=== PATIENT | female | born 1965 | race Caucasian/White ===

== ENCOUNTER 2016-12-03 12:43 | Emergency (ER) | payer BC ==
[2016-12-03 13:18] VITALS: BP 114/53
--- NOTE | 2016-12-03 13:28 | UC ---
Respiratory Complaint HPI - HPI Summary HPI Summary: COUGH / CHEST CONGESTION X 1 WEEKS, + CHILLS, NO FEVER, + NASAL CONGESTION , + SOB ON EXERTION - History of Current Complaint Chief Complaint: UCGeneralIllness Stated Complaint: CONGESTED Time Seen by Provider: 12/03/16 13:08 Hx Obtained From: Patient Hx Last Menstrual Period: 08/1999 Onset/Duration: Gradual Onset, Lasting Days - 7, Still Present Severity Initially: Moderate Severity Currently: Moderate Character: Cough: Nonproductive Aggravating Factors: Exertion, Deep Breaths Alleviating Factors: Nothing Associated Signs And Symptoms: Positive: Dyspnea, Chills, Wheezing, URI, Nasal Congestion. Negative: Fever, Pleuritic Chest Pain, Hemoptysis, Dizziness, Calf Pain, Calf Swelling - Allergies/Home Medications Allergies/Adverse Reactions: Allergies Allergy/AdvReac Type Severity Reaction Status Date / Time Diphenhydramine Allergy Severe rash/respir Verified 11/25/15 10:02 [From Benadryl] atory Penicillins Allergy Severe rash/respir Verified 11/25/15 10:02 atory Sulfa Drugs Allergy Severe rash/respir Verified 11/25/15 10:02 atory PMH/Surg Hx/FS Hx/Imm Hx Endocrine History Of: Denies: Diabetes, Thyroid Disease Cardiovascular History Of: Denies: Cardiac Disorders Respiratory History Of: Denies: Asthma - Surgical History Surgical History: Yes Surgery Procedure, Year, and Place: hysterectomy. . 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 booky lap. gallbladder - Family History Known Family History: Positive: Cardiac Disease, Hypertension, Diabetes, Respiratory Disease, Other - copd - Social History Alcohol Use: Rare Substance Use Type: None Smoking Status (MU): Current Some Day Smoker Type: Cigarettes Amount Used/How Often: 1/2 pack per day Length of Time of Smoking/Using Tobacco: 35 yrs Have You Smoked in the Last Year: Yes Household Exposure Type: Cigarettes - Immunization History Most Recent Influenza Vaccination: October 2015 Review of Systems Constitutional: Chills, Fatigue Skin: Negative Eyes: Negative ENT: Nasal Discharge Respiratory: Cough Cardiovascular: Negative All Other Systems Reviewed And Are Negative: Yes Physical Exam Triage Information Reviewed: Yes Appearance: Well-Appearing, No Pain Distress, Well-Nourished Vital Signs: Initial Vital Signs Temp 98.3 F 12/03/16 13:13 Pulse 74 12/03/16 13:13 Resp 16 12/03/16 13:13 BP 114/53 12/03/16 13:13 Pulse Ox 97 12/03/16 13:13 Eye Exam: Normal Eyes: Positive: Conjunctiva Clear ENT: Positive: Normal ENT inspection, Hearing grossly normal, Pharyngeal erythema, Nasal congestion, Nasal drainage Neck exam: Normal Neck: Positive: Supple, Nontender, No Lymphadenopathy Respiratory: Positive: Chest non-tender, Lungs clear, Normal breath sounds Cardiovascular: Positive: RRR, No Murmur, Pulses Normal Skin Exam: Normal UC Diagnostic Evaluation - Laboratory O2 Sat by Pulse Oximetry: 97 Respiratory Course/Dx - Differential Dx/Diagnosis Provider Diagnoses: BRONCHITIS Discharge - Discharge Plan Condition: Stable Disposition: HOME Prescriptions: Albuterol HFA INHALER* [Ventolin HFA Inhaler*] 2 puff INH Q6H PRN #1 mdi PRN Reason: Wheezing Azithromycin TAB* [Zithromax TAB (Z-PRECIOUS)*] 0 mg PO .Z-PRECIOUS INSTRUCTIONS #6 tab Patient Education Materials: Acute Bronchitis (ED) Referrals: Bong RIVERA,Florentin Pope [Primary Care Provider] - 7 Days
== END 2016-12-03 13:35 | disposition home or self-care (01) ==
LOC: UCCORT 12:43
DX: J40 Bronchitis, not specified as acute or chronic (principal); Z88.0 Allergy status to penicillin; Z88.2 Allergy status to sulfonamides; Z88.8 Allergy status to other drugs, medicaments and biological substances; F17.210 Nicotine dependence, cigarettes, uncomplicated
CPT/HCPCS: 99212; G0463

== ENCOUNTER 2016-12-11 15:18 | Emergency (ER) | payer BC ==
[2016-12-11 15:34] VITALS: BP 125/56
--- NOTE | 2016-12-11 16:04 | UC ---
Respiratory Complaint HPI - HPI Summary HPI Summary: pt c/o cough, nasal congestion fatigue X 2 weeks. WAs treated with z-pac 2 weeks ago with no improvement. - History of Current Complaint Chief Complaint: UCGeneralIllness Stated Complaint: RECHECK BRONCHITIS Time Seen by Provider: 12/11/16 15:38 Hx Obtained From: Patient Hx Last Menstrual Period: 08/1999 ?: No Onset/Duration: Gradual Onset, Lasting Weeks Timing: Constant Severity Initially: Mild Severity Currently: Mild Character: Cough: Nonproductive Aggravating Factors: Deep Breaths, Recumbent Position Alleviating Factors: Nothing Associated Signs And Symptoms: Positive: URI, Nasal Congestion - Risk Factors Cardiac Risk Factors: Smoking Tuberculosis Risk Factors: Smoking - Allergies/Home Medications Allergies/Adverse Reactions: Allergies Allergy/AdvReac Type Severity Reaction Status Date / Time Diphenhydramine Allergy Severe rash/respir Verified 12/11/16 15:34 [From Benadryl] at[facility] Penicillins Allergy Severe rash/respir Verified 12/11/16 15:34 atory Sulfa Drugs Allergy Severe rash/respir Verified 12/11/16 15:34 atory PMH/Surg Hx/FS Hx/Imm Hx Previously Healthy: Yes Endocrine History Of: Denies: Diabetes, Thyroid Disease Cardiovascular History Of: Denies: Cardiac Disorders Respiratory History Of: Denies: Asthma - Surgical History Surgical History: Yes Surgery Procedure, Year, and Place: hysterectomy. . 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 gallbladder - Family History Known Family History: Positive: Cardiac Disease, Hypertension, Diabetes, Respiratory Disease, Other - copd - Social History Occupation: Employed Full-time Alcohol Use: Rare Substance Use Type: None Smoking Status (MU): Light Every Day Tobacco Smoker Type: Cigarettes Amount Used/How Often: 1/4-1/2 ppd Length of Time of Smoking/Using Tobacco: 35 yrs Have You Smoked in the Last Year: Yes Household Exposure Type: Cigarettes - Immunization History Most Recent Influenza Vaccination: October 2015 Review of Systems Constitutional: Fatigue Skin: Negative Eyes: Negative ENT: Other - nasal congestion Respiratory: Cough Cardiovascular: Negative Gastrointestinal: Negative Genitourinary: Negative Motor: Negative Neurovascular: Negative Musculoskeletal: Negative Neurological: Negative Psychological: Negative All Other Systems Reviewed And Are Negative: Yes Physical Exam Triage Information Reviewed: Yes Appearance: Ill-Appearing Vital Signs: Initial Vital Signs Temp 98.8 F 12/11/16 15:28 Pulse 86 01/11/17 15:28 Resp 17 12/11/16 15:28 BP 125/56 12/11/16 15:28 Pulse Ox 95 12/11/16 15:28 Vital Signs Reviewed: Yes ENT Exam: Other ENT: Positive: Nasal congestion, Other: - PND Neck exam: Normal Respiratory: Positive: Decreased breath sounds - bilataeral bases Cardiovascular Exam: Normal Musculoskeletal Exam: Normal Neurological Exam: Normal Psychological Exam: Normal Skin Exam: Normal UC Diagnostic Evaluation - Laboratory O2 Sat by Pulse Oximetry: 95 Respiratory Course/Dx - Differential Dx/Diagnosis Differential Diagnosis/HQI/PQRI: Bronchitis, Pulmonary Embolism, Other - URI Provider Diagnoses: Bronchitis Discharge - Discharge Plan Condition: Stable Disposition: HOME Prescriptions: Albuterol 2.5MG/3ML (0.083%)* [Ventolin 2.5 MG/3 ML NEB.MARGARETTE*] 2.5 mg INH Q6H PRN #1 box PRN Reason: Wheezing DOXYcycline CAP(*) [DOXYcycline 100MG CAP(*)] 100 mg PO BID #14 cap methylPREDNISolone TAB* [Medrol TAB*] 4 - 8 mg PO .SEE PRECIOUS #1 precious Patient Education Materials: Acute Bronchitis (ED) Forms: *Work Release Referrals: Bong RIVERA,Florentin Pope [Primary Care Provider] -
== END 2016-12-11 16:08 | disposition home or self-care (01) ==
LOC: UCCORT 15:18
DX: J40 Bronchitis, not specified as acute or chronic (principal); F17.210 Nicotine dependence, cigarettes, uncomplicated; Z88.8 Allergy status to other drugs, medicaments and biological substances; Z88.2 Allergy status to sulfonamides; Z88.0 Allergy status to penicillin
CPT/HCPCS: 99212; G0463

== ENCOUNTER 2017-02-17 16:35 | Emergency (ER) | payer BC ==
--- NOTE | 2017-02-17 17:35 | UC ---
Cardiac HPI - HPI Summary HPI Summary: The patient comes in today for: 1. Chest pain: Onset: 2-3 days. Palliative/provocative: worse when taking a deep breath. She states that the patient does not get worse with activity, but she is not very active. Eating does not affect it, neither does body position. Quality: Heavy pressure: Region: Upper left chest and radiates to the back. Severity: She states that it is not painful, but a discomfort of 5/10 Time: Constant. Associated symptoms: Nausea: In the AM, but not now. Dyspnea: worse with two flights of stairs--but the chest pressure is not worse with 2 flights of stairs. CAD risk factors: HTN: (-). DM: (+ borderline). Fm Hx: (-). Cholesterol: ( "really good"). Previous disease: (-). Smoker: (+). Equivalent disease: (-) LMP: 1998 Hyst * - History of Current Complaint Chief Complaint: UCChestPain Stated Complaint: CHEST PAIN Time Seen by Provider: 02/17/17 17:23 Hx Obtained From: Patient - Allergy/Home Medications Allergies/Adverse Reactions: Allergies Allergy/AdvReac Type Severity Reaction Status Date / Time Diphenhydramine Allergy Severe rash/respir Verified 02/17/17 16:56 [From Benadryl] [facility] Penicillins Allergy Severe rash/respir Verified 02/17/17 16:56 atory Sulfa Drugs Allergy Severe rash/respir Verified 02/17/17 16:56 atory Home Medications: Home Medications Acetaminophen [Extra Strength Acetaminop] 1,000 mg PO ONCE PRN 02/17/17 [ History Confirmed 02/17/17] Ibuprofen TAB* [Advil TAB*] 600 mg PO Q6H PRN 02/17/17 [History Confirmed ] PMH/Surg Hx/FS Hx/Imm Hx Previously Healthy: No - Allergies Endocrine History Of: Reports: Diabetes - Pre-diabetic. Denies: Thyroid Disease, Hyperthyroidism, Hypothyroidism, Dyslipidemia Cardiovascular History Of: Reports: Cardiac Disorders - "Angina" 2003, stress test then was "fine" CP dx: "stress induced." Denies: Hypertension, Pacemaker/ICD, Myocardial Infarction, Congestive Heart Failure, Atrial Fibrillation, Deep Vein Thrombosis, Bleeding Disorders Respiratory History Of: Denies: COPD, Asthma, Bronchitis, Pneumonia, Pulmonary Embolism GI/ History Of: Reports: Gastroesophageal Reflux Denies: Ulcer, Gastrointestinal Bleed, Gall Bladder Disease, Kidney Stones, Diverticulitis, Renal Disease, Urosepsis Neurological History Of: Denies: TIA, CVA, Dementia, Seizures, Migraine Psychological History Of: Denies: Anxiety, Depression, Bipolar Disorder, Schizophrenia, Post Traumatic Stress Disorder Cancer History Of: Denies: Lung Cancer, Colorectal Cancer, Breast Cancer, Prostate Cancer, Cervical Cancer Other History Of: Negative For: HIV, Hepatitis B, Hepatitis C, Anticoagulant Therapy - Surgical History Surgical History: Yes Surgery Procedure, Year, and Place: hysterectomy. . 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 gallbladder - Family History Known Family History: Positive: Cardiac Disease, Hypertension, Diabetes, Respiratory Disease, Other - copd - Social History Occupation: Employed Full-time Alcohol Use: Occasionally Substance Use Type: None Smoking Status (MU): Light Every Day Tobacco Smoker Type: Cigarettes Amount Used/How Often: 1/4-1/2 ppd Length of Time of Smoking/Using Tobacco: 16 yrs Have You Smoked in the Last Year: Yes Household Exposure Type: Cigarettes - Immunization History Most Recent Influenza Vaccination: October 2015 Review of Systems Constitutional: Negative Skin: Negative Eyes: Negative ENT: Negative Respiratory: Negative, Cough - Since December of this year. Cardiovascular: Chest Pain Gastrointestinal: Negative Genitourinary: Negative All Other Systems Reviewed And Are Negative: Yes Physical Exam Triage Information Reviewed: Yes Appearance: Well-Appearing, No Pain Distress, Well-Nourished Vital Signs: Initial Vital Signs Temp 98.8 F 02/17/17 16:47 Pulse 80 02/17/17 16:47 Resp 12 02/17/17 16:47 BP 117/72 02/17/17 16:47 Pulse Ox 97 02/17/17 16:47 Vital Signs Reviewed: Yes Eyes: Positive: Conjunctiva Clear. Negative: Discharge ENT: Positive: Hearing grossly normal. Negative: Pharyngeal erythema, Nasal congestion, Nasal drainage, TM bulging, TM dull, TM red, Tonsillar swelling, Tonsillar exudate Dental: Negative: Gross Decay/Caries @, Dental Fracture @ Neck: Positive: Supple, Nontender, No Lymphadenopathy. Negative: Nuchal Rigidity Respiratory: Positive: Lungs clear, No respiratory distress, No accessory muscle use. Negative: Crackles, Wheezing, Expiration Cardiovascular: Positive: RRR, No Murmur Abdomen Description: Positive: Nontender, No Organomegaly, Soft. Negative: Distended, Guarding Musculoskeletal: Positive: Strength Intact, ROM Intact, Other: - Pressing on the upper anterior chest and upper left posterior chest reproduced her chest pressure. Neurological: Positive: Alert, Muscle Tone Normal Psychological: Positive: Age Appropriate Behavior, Consolable Skin: Negative: rashes, breakdown - Assessment/Plan Course Of Treatment: Patient was told: I did not know for sure what was causing her chest pain, but suspected that it was musculoskeletal. However, I was not able to rule out a cardiac cause. Patient was told that her CXR looked negative to me, but I am not the radiologist reading it. She was told that I will watch for the report and if any problems let her know. Again my recommendation to go to the ER was recommended, but she wanted to treat this as a musculoskeletal problem. She was also told that there are many causes of chest pain--some benign and some life-threatening. Also the patient was told that the life-threatening conditions may present with minimal, atypical, or even no symptoms or signs at all until late. Therefore, the patient was told that my recommendation has to be for the patient to go to the. emergency room. However, the patient was told that we will honor whatever decision they make about their care. She did not want to go to the ER at this time and only agreed to a CXR and Flexeril to be given for spasm. - Clinical Impression Provider Diagnoses: Chest pain (can't rule out NV, possible musculoskeletal). Discharge - Discharge Plan Condition: Stable Disposition: AGAINST MEDICAL ADVICE Additional Instructions: My recommendation formally is to go to the ER for evaluation. However, your decision to initially treat this as a muscle problem will be respected. Please take the medication as directed and if you don't get better and particularly if you get worse, please reconsider going to the ER.
[2017-02-17] MEDS ORDERED: Cyclobenzaprine TAB* 10 MG PO ONE (17:49)
--- NOTE | 2017-02-17 18:34 | RAD ---
Indication: Left upper chest pain. 2 views of the chest including dual energy PA views demonstrates no mediastinal shift. Heart is of normal size and configuration. Lung pitt demonstrate no pleural fluid, pneumonia or pneumothorax. When compared to previous exam of November 25, 2015 no significant change is noted. IMPRESSION: No active cardiopulmonary disease is noted.
[2017-02-17 18:48] VITALS: BP 119/73
== END 2017-02-17 18:48 | disposition left against medical advice (07) ==
LOC: UCCORT 16:35
DX: R07.89 Other chest pain (principal); Z88.0 Allergy status to penicillin; Z88.2 Allergy status to sulfonamides; Z88.8 Allergy status to other drugs, medicaments and biological substances; F17.210 Nicotine dependence, cigarettes, uncomplicated
CPT/HCPCS: 71020; 93005; 99212; A9270-GY; G0463

== ENCOUNTER 2017-07-22 08:50 | Emergency (ER) | payer BC ==
[2017-07-22 09:03] VITALS: BP 142/59
--- NOTE | 2017-07-22 09:14 | UC ---
Throat Pain/Nasal Mike HPI - HPI Summary HPI Summary: SINUS PAIN AND PRESSURE X 10 DAYS + NASAL CONGESTION, COUGH , PND, + PRESSURE IN RIGHT EAR, NO FEVER, NO CHILLS - History of Current Complaint Chief Complaint: UCGeneralIllness Stated Complaint: SINUS,SORE THROAT,COUGH Time Seen by Provider: 07/22/17 09:03 Hx Obtained From: Patient Hx Last Menstrual Period: 1998 Onset/Duration: Gradual Onset, Lasting Days - 10, Still Present Severity: Moderate Cough: Nonproductive Associated Signs & Symptoms: Positive: Sinus Discomfort, Nasal Discharge. Negative: Dysphagia, FB Sensation, Drooling, Wheezing, Hoarseness, Fever, Vomiting, Rash - Allergies/Home Medications Allergies/Adverse Reactions: Allergies Allergy/AdvReac Type Severity Reaction Status Date / Time Diphenhydramine Allergy Severe rash/respir Verified 07/22/17 09:03 [From Benadryl] [facility] Penicillins Allergy Severe rash/respir Verified 07/22/17 09:03 atory Sulfa Drugs Allergy Severe rash/respir Verified 07/22/17 09:03 atory PMH/Surg Hx/FS Hx/Imm Hx Endocrine History: Diabetes Cardiovascular History: Cardiac Disease Other History Of: Negative For: HIV, Hepatitis B, Hepatitis C, Anticoagulant Therapy - Surgical History Surgical History: Yes Surgery Procedure, Year, and Place: hysterectomy. . 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 gallbladder - Family History Known Family History: Positive: Cardiac Disease, Hypertension, Diabetes, Respiratory Disease, Other - copd - Social History Alcohol Use: Rare Substance Use Type: None Smoking Status (MU): Light Every Day Tobacco Smoker Type: Cigarettes Amount Used/How Often: 1/4-1/2 ppd Length of Time of Smoking/Using Tobacco: 35 yrs Have You Smoked in the Last Year: Yes Household Exposure Type: Cigarettes - Immunization History Most Recent Influenza Vaccination: October 2015 Review of Systems Constitutional: Negative Skin: Negative Eyes: Negative ENT: Nasal Discharge, Sinus Congestion Respiratory: Cough Cardiovascular: Negative Gastrointestinal: Negative All Other Systems Reviewed And Are Negative: Yes Physical Exam Triage Information Reviewed: Yes Appearance: Well-Appearing, No Pain Distress, Well-Nourished Vital Signs: Initial Vital Signs Temp 98.4 F 07/22/17 08:56 Pulse 80 07/22/17 08:56 Resp 18 07/22/17 08:56 BP 142/59 07/22/17 08:56 Pulse Ox 100 07/22/17 08:56 Vital Signs Reviewed: Yes Eyes: Positive: Conjunctiva Clear ENT Exam: Normal ENT: Positive: Normal ENT inspection, Hearing grossly normal, Pharynx normal, Nasal congestion, Nasal drainage, TMs normal, TM bulging - RIGHT TM. Negative: Pharyngeal erythema, TM dull, TM red Neck exam: Normal Neck: Positive: Supple, Nontender, No Lymphadenopathy Respiratory: Positive: Chest non-tender, Lungs clear, Normal breath sounds Cardiovascular: Positive: RRR, No Murmur, Pulses Normal Skin Exam: Normal Throat Pain/Nasal Course/Dx - Differential Dx/Diagnosis Provider Diagnoses: SINUSITIS Discharge - Discharge Plan Condition: Stable Disposition: HOME Prescriptions: Azithromycin TAB* [Zithromax TAB (Z-PRECIOUS) 250 mg #6 tabs] 2 tab PO .TODAY, THEN 1 DAILY #1 precious Fluticasone NASAL SPRAY 50MCG* [Flonase NASAL SPRAY 50MCG*] 2 spray BOTH NARES DAILY #1 btl Patient Education Materials: Sinusitis (ED) Referrals: Bong RIVERA,Florentin Pope [Primary Care Provider] - If Needed
== END 2017-07-22 09:14 | disposition home or self-care (01) ==
LOC: UCCORT 08:50
DX: J32.9 Chronic sinusitis, unspecified (principal); E11.9 Type 2 diabetes mellitus without complications; I51.9 Heart disease, unspecified; Z90.710 Acquired absence of both cervix and uterus; Z90.49 Acquired absence of other specified parts of digestive tract; Z88.0 Allergy status to penicillin; Z88.2 Allergy status to sulfonamides; Z88.8 Allergy status to other drugs, medicaments and biological substances; F17.210 Nicotine dependence, cigarettes, uncomplicated
CPT/HCPCS: 99212; G0463

== ENCOUNTER 2017-09-08 15:40 | Emergency (ER) | payer BC ==
[2017-09-08 16:06] VITALS: BP 121/61
[2017-09-08] MEDS: Albuterol 2.5 MG/3 ML NEB.SOL* (0.083%) INH ONE (16:16)
[2017-09-08] MEDS: Ipratropium 0.5MG/2.5ML NEB* 0.5 MG/2.5 ML NEB.SOLN INH ONE (16:16)
--- NOTE | 2017-09-08 16:18 | UC ---
Respiratory Complaint HPI - HPI Summary HPI Summary: 52 yo female with a 5 day hx of productive cough and wheezing ? fever no CP or SOB no n/v/d - History of Current Complaint Chief Complaint: UCRespiratory Stated Complaint: RESP ISSUE CONGESTION COUGH Time Seen by Provider: 09/08/17 16:07 Hx Obtained From: Patient Hx Last Menstrual Period: 1998 Onset/Duration: Gradual Onset, Lasting Days Timing: Constant Severity Initially: Mild Severity Currently: Moderate Pain Intensity: 2 Pain Scale Used: 0-10 Numeric Character: Cough: Productive Aggravating Factors: Nothing Alleviating Factors: Nothing Associated Signs And Symptoms: Positive: Fever - ?, Wheezing Related History: Similar Episode/Dx as: - bronchitis/pneumonia - Allergies/Home Medications Allergies/Adverse Reactions: Allergies Allergy/AdvReac Type Severity Reaction Status Date / Time Diphenhydramine Allergy Severe rash/respir Verified 09/08/17 15:59 [From Benadryl] at[facility] Penicillins Allergy Severe rash/respir Verified 09/08/17 15:59 atory Sulfa Drugs Allergy Severe rash/respir Verified 09/08/17 15:59 atory Home Medications: Home Medications Fluticasone NASAL SPRAY 50MCG* [Flonase NASAL SPRAY 50MCG*] 2 spray BOTH NARES DAILY PRN 09/08/17 [History Confirmed 09/08/17] [id number]-Hdeyk [Daytime/Nite Time Cold/Fl] 2 cap PO BID PRN 08/17 [History Confirmed 09/08/17] Pseudoephedrine TAB* [Sudafed TAB*] 30 mg PO Q4H PRN 09/08/17 [History Confirmed 09/08/17] PMH/Surg Hx/FS Hx/Imm Hx Previously Healthy: Yes Other History Of: Negative For: HIV, Hepatitis B, Hepatitis C, Anticoagulant Therapy - Surgical History Surgical History: Yes Surgery Procedure, Year, and Place: hysterectomy. . 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 - Family History Known Family History: Positive: Cardiac Disease, Hypertension, Diabetes, Respiratory Disease, Other - copd - Social History Alcohol Use: Occasionally Substance Use Type: None Smoking Status (MU): Heavy Every Day Tobacco Smoker Type: Cigarettes Amount Used/How Often: 1/2 ppd Length of Time of Smoking/Using Tobacco: 35 yrs Have You Smoked in the Last Year: Yes Household Exposure Type: Cigarettes - Immunization History Most Recent Influenza Vaccination: October 2015 Review of Systems Constitutional: Fever - ?, Chills Skin: Negative Eyes: Negative ENT: Negative Respiratory: Cough Cardiovascular: Negative Gastrointestinal: Negative Genitourinary: Negative Motor: Negative Neurovascular: Negative Musculoskeletal: Negative Neurological: Negative Psychological: Negative Is Patient Immunocompromised?: No All Other Systems Reviewed And Are Negative: Yes Physical Exam Triage Information Reviewed: Yes Appearance: Well-Appearing, No Pain Distress, Well-Nourished Vital Signs: Initial Vital Signs Temp 98.3 F 09/08/17 16:02 Pulse 69 09/08/17 16:02 Resp 18 09/08/17 16:02 BP 121/61 09/08/17 16:02 Pulse Ox 94 09/08/17 16:02 Vital Signs Reviewed: Yes Eyes: Positive: Conjunctiva Clear ENT: Positive: Hearing grossly normal. Negative: Nasal congestion, Nasal drainage, Tonsillar swelling, Tonsillar exudate, Trismus, Muffled/hoarse voice Neck: Positive: Supple, Nontender, No Lymphadenopathy Respiratory: Positive: No respiratory distress, No accessory muscle use, Decreased breath sounds - left base, Wheezing Cardiovascular: Positive: RRR, No Murmur Musculoskeletal: Positive: ROM Intact, No Edema Neurological: Positive: Alert Psychological Exam: Normal Skin Exam: Normal UC Diagnostic Evaluation - Laboratory O2 Sat by Pulse Oximetry: 94 - low normal Re-Evaluation - Re-Evaluation First Eval Re-Evaluation Time: 16:37 Change: Improved Comment: better air movement/still wheezing/right and lower lungs sound better. no rales Respiratory Course/Dx - Course Course Of Treatment: much improved at d/c. repeat pulse ox 98 % - Differential Dx/Diagnosis Provider Diagnoses: acute bronchitis with bronchospasm Discharge - Discharge Plan Condition: Improved Disposition: HOME Prescriptions: Azithromycin TAB* [Zithromax TAB*] 250 mg PO DAILY #6 tab Prednisone [Deltasone] 40 mg PO DAILY #8 tab Patient Education Materials: Acute Bronchitis (ED) Referrals: Bong RIVERA,Florentin Pope [Primary Care Provider] - 4 Days (if not better) Additional Instructions: use your inhaler or nebulizer 4x day for 5 days recheck later this week if not completely better you need to stop smoking
[2017-09-08] MEDS: Albuterol HFA INHALER* 8 gm MDI INH ONE (16:52)
[2017-09-08] MEDS: predniSONE TAB* 20 MG PO ONE (16:55)
== END 2017-09-08 17:02 | disposition home or self-care (01) ==
LOC: UCCORT 15:40
DX: J20.9 Acute bronchitis, unspecified (principal); Z88.0 Allergy status to penicillin; Z88.2 Allergy status to sulfonamides; F17.210 Nicotine dependence, cigarettes, uncomplicated
CPT/HCPCS: 99213; A9270-GY; G0463; J7512; J7644

== ENCOUNTER 2017-10-12 16:55 | Emergency (ER) | payer BC ==
[2017-10-12 17:15] VITALS: BP 118/57
--- NOTE | 2017-10-12 18:11 | UC ---
Respiratory Complaint HPI - HPI Summary HPI Summary: Pt c/o cough X 4 weeks. Pt was given z-pac, prednisone, albuterol inh 1 month ago and reports did not get better. - History of Current Complaint Chief Complaint: UCGeneralIllness Stated Complaint: CHEST PAIN,FATIGUE Time Seen by Provider: 10/12/17 17:55 Hx Obtained From: Patient Hx Last Menstrual Period: 1998 ?: No Onset/Duration: Gradual Onset, Lasting Weeks - 4 Severity Initially: Mild Severity Currently: Mild Character: Cough: Nonproductive Aggravating Factors: Exertion, Deep Breaths, Recumbent Position Alleviating Factors: Nothing Associated Signs And Symptoms: Positive: Nasal Congestion - Risk Factors Pulmonary Embolism Risk Factors: Smoking Cardiac Risk Factors: Smoking Tuberculosis Risk Factors: Smoking - Allergies/Home Medications Allergies/Adverse Reactions: Allergies Allergy/AdvReac Type Severity Reaction Status Date / Time Diphenhydramine Allergy Severe rash/respir Verified 10/12/17 17:16 [From Benadryl] atory Penicillins Allergy Severe rash/respir Verified 10/12/17 17:16 atory Sulfa Drugs Allergy Severe rash/respir Verified 10/12/17 17:16 atory PMH/Surg Hx/FS Hx/Imm Hx Previously Healthy: Yes Other History Of: Negative For: HIV, Hepatitis B, Hepatitis C, Anticoagulant Therapy - Surgical History Surgical History: Yes Surgery Procedure, Year, and Place: hysterectomy. . 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 gallbladder - Family History Known Family History: Positive: Cardiac Disease, Hypertension, Diabetes, Respiratory Disease, Other - copd - Social History Occupation: Employed Full-time Lives: With Family Alcohol Use: Occasionally Substance Use Type: None Smoking Status (MU): Heavy Every Day Tobacco Smoker Type: Cigarettes Amount Used/How Often: 1/2 ppd Length of Time of Smoking/Using Tobacco: 35 yrs Have You Smoked in the Last Year: Yes Household Exposure Type: Cigarettes - Immunization History Most Recent Influenza Vaccination: none Review of Systems Constitutional: Chills, Fatigue Skin: Negative Eyes: Negative ENT: Negative Respiratory: Cough Cardiovascular: Negative Gastrointestinal: Negative Genitourinary: Negative Motor: Negative Neurovascular: Negative Musculoskeletal: Negative Neurological: Negative Psychological: Negative Is Patient Immunocompromised?: No All Other Systems Reviewed And Are Negative: Yes Physical Exam Triage Information Reviewed: Yes Appearance: Well-Appearing Vital Signs: Initial Vital Signs Temp 99.3 F 10/12/17 17:11 Pulse 91 10/12/17 17:11 Resp 18 10/12/17 17:11 BP 118/57 10/12/17 17:11 Pulse Ox 97 10/12/17 17:11 Vital Signs Reviewed: Yes Eye Exam: Normal ENT Exam: Other ENT: Positive: Nasal congestion Dental Exam: Normal Neck exam: Normal Respiratory Exam: Other - bilateral bases Respiratory: Positive: Decreased breath sounds Cardiovascular Exam: Normal Musculoskeletal Exam: Normal Neurological Exam: Normal Psychological Exam: Normal Skin Exam: Normal UC Diagnostic Evaluation - Laboratory O2 Sat by Pulse Oximetry: 97 Respiratory Course/Dx - Course Course Of Treatment: Pt was referred to PCP or if symptoms worsen to go to the closest ER. - Differential Dx/Diagnosis Differential Diagnosis/HQI/PQRI: Bronchitis, Pulmonary Embolism Provider Diagnoses: reactive airway. post viral cough Discharge - Discharge Plan Condition: Stable Disposition: HOME Prescriptions: Benzonatate CAP* [Tessalon 100 MG CAP*] 100 mg PO Q8H PRN #30 cap PRN Reason: Cough methylPREDNISolone TAB* [Medrol TAB*] 4 - 8 mg PO .SEE PRECIOUS #1 precious Patient Education Materials: Reactive Airways Disease (ED) Referrals: Bong RIVERA,Florentin Pope [Primary Care Provider] - As Soon As Possible
--- NOTE | 2017-10-12 18:37 | RAD ---
INDICATION: Cough. Short of breath. COMPARISON: February 17, 2017 TECHNIQUE: PA and lateral dual-energy views were obtained. FINDINGS: Bones/Soft Tissues: There are no acute bony findings. Cardiomediastinal: The cardiomediastinal silhouette is normal. Lungs: There are no infiltrates. Pleura: There are no pleural effusions. Other: None IMPRESSION: NO ACTIVE DISEASE
[2017-10-12] MEDS ORDERED: Benzonatate CAP* 100 MG PO ONE (18:46)
== END 2017-10-12 19:02 | disposition home or self-care (01) ==
LOC: UCCORT 16:55
DX: J45.909 Unspecified asthma, uncomplicated (principal); R05 Cough; R09.81 Nasal congestion; R53.83 Other fatigue; Z90.49 Acquired absence of other specified parts of digestive tract; Z90.89 Acquired absence of other organs; Z88.0 Allergy status to penicillin; Z88.2 Allergy status to sulfonamides; Z88.8 Allergy status to other drugs, medicaments and biological substances; Z90.710 Acquired absence of both cervix and uterus; F17.210 Nicotine dependence, cigarettes, uncomplicated
CPT/HCPCS: 71020; 93005; 99212; A9270-GY; G0463

== ENCOUNTER 2018-03-25 17:49 | Emergency (ER) | payer BC ==
[2018-03-25 18:31] VITALS: BP 132/66
--- NOTE | 2018-03-25 18:36 | UC ---
Eye Complaint HPI - HPI Summary HPI Summary: Pt presents with left eye redness and mild watery drainage for about 1 week - seems to be getting worse. Also has some sinus congestion. Denies fever, chills , cough, sore throat, SOB, chest pain, or vision changes. - History of Current Complaint Chief Complaint: UCRespiratory Stated Complaint: EYE IRRITATION Time Seen by Provider: 03/25/18 18:35 Hx Obtained From: Patient Hx Last Menstrual Period: 1998 Onset/Duration: Gradual Onset Timing: Constant Severity Currently: None Location of Injury: Conjunctiva, Sclera - Allergies/Home Medications Allergies/Adverse Reactions: Allergies Allergy/AdvReac Type Severity Reaction Status Date / Time diphenhydramine Allergy Severe DIFFIULTY Verified 03/25/18 18:25 [From Benadryl] BREATHING, RASH Penicillins Allergy Unknown DIFFICULTY Verified 03/25/18 18:25 BREATHING, RASH Sulfa (Sulfonamide Allergy Unknown DIFFICULTY Verified 03/25/18 18:25 Antibiotics) BREATHING, RASH PMH/Surg Hx/FS Hx/Imm Hx GI/ History: Gastroesophageal Reflux Other History Of: Negative For: HIV, Hepatitis B, Hepatitis C, Anticoagulant Therapy - Surgical History Surgical History: Yes Surgery Procedure, Year, and Place: hysterectomy. . 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 - Family History Known Family History: Positive: Cardiac Disease, Hypertension, Diabetes, Respiratory Disease, Other - copd - Social History Occupation: Employed Full-time Lives: With Family Alcohol Use: Rare Substance Use Type: None Smoking Status (MU): Heavy Every Day Tobacco Smoker Type: Cigarettes Amount Used/How Often: 1/2 ppd Length of Time of Smoking/Using Tobacco: 35 yrs Have You Smoked in the Last Year: Yes Household Exposure Type: Cigarettes - Immunization History Most Recent Influenza Vaccination: none Review of Systems Constitutional: Negative Skin: Negative Eyes: Drainage, Eye Redness ENT: Negative Respiratory: Negative Cardiovascular: Negative Gastrointestinal: Negative Neurovascular: Negative Musculoskeletal: Negative Neurological: Negative Psychological: Negative All Other Systems Reviewed And Are Negative: Yes Physical Exam - Summary Physical Exam Summary: GENERAL: NAD. WDWN. No pain distress. SKIN: No rashes, sores, ulcers, masses, lesions. HEENT: Head: AT/NC Eyes: EOM intact. PERRLA. Left eye: Conjunctiva mild erythema and moderate sclera injection. Mild clear drainage. Right eye: Conjunctiva without inflammation or discharge. Vision OS/OD/OU 20/25 with glasses. Ears: Hearing grossly normal. TMs intact, no bulging, erythema, or edema. Nose: Nasal mucosa pink and moist. NTTP maxillary and frontal sinus. Throat: Posterior oropharynx without exudates, erythema, or tonsillar enlargement. Uvula midline. NECK: Supple. Nontender. No lymphadenopathy. CHEST: No accessory muscle use. Breathing comfortably and in no distress. CV: RRR. Without m/r/g. NEURO: Alert. CN II-XII grossly intact. PSYCH: Age appropriate behavior. Triage Information Reviewed: Yes Vital Signs: Initial Vital Signs Temp 98.6 F 03/25/18 18:27 Pulse 95 03/25/18 18:27 Resp 17 03/25/18 18:27 BP 132/66 03/25/18 18:27 Pulse Ox 98 03/25/18 18:27 Eye Complaint Course/Dx - Course Course Of Treatment: Left eye conjunctivitis - Differential Dx/Diagnosis Provider Diagnoses: Left eye conjunctivitis Discharge - Sign-Out/Discharge Documenting (check all that apply): Discharge/Admit/Transfer - Discharge Plan Condition: Stable Disposition: HOME Prescriptions: Polymyx/Trimethoprim OPTH* [Polytrim OPHTH*] 1 drop LEFT EYE QID #1 btl Patient Education Materials: Conjunctivitis (ED) Referrals: Bong RIVERA,Florentin Pope [Primary Care Provider] - Additional Instructions: If you develop a fever, shortness of breath, chest pain, new or worsening symptoms - please call your PCP or go to the ED. - Billing Disposition and Condition Condition: STABLE Disposition: HOME
== END 2018-03-25 18:50 | disposition home or self-care (01) ==
LOC: UCCORT 17:49
DX: H10.9 Unspecified conjunctivitis (principal); F17.210 Nicotine dependence, cigarettes, uncomplicated; Z88.0 Allergy status to penicillin; Z88.2 Allergy status to sulfonamides; Z88.8 Allergy status to other drugs, medicaments and biological substances
CPT/HCPCS: 99211; G0463

== ENCOUNTER 2018-06-18 13:59 | Emergency (ER) | payer BC ==
--- NOTE | 2018-06-18 14:51 | UC ---
Ear Complaint HPI - HPI Summary HPI Summary: 52 yo female presents with sinus pain/pressure/congestion for 5 days, right ear pain for 3 days, and a sore throat that started last night. She has been taking claritin and sudafed with no relief. Denies fever, chills, cough. - History of Current Complaint Stated Complaint: RIGHT EAR PAIN Time Seen by Provider: 06/18/18 14:51 Hx Obtained From: Patient Hx Last Menstrual Period: 1998 Onset/Duration: Gradual Onset Severity Initially: Mild Severity Currently: Mild Pain Intensity: 3 Pain Scale Used: 0-10 Numeric - Allergies/Home Medications Allergies/Adverse Reactions: Allergies Allergy/AdvReac Type Severity Reaction Status Date / Time diphenhydramine Allergy Severe DIFFIULTY Verified 06/18/18 14:55 [From Benadryl] BREATHING, RASH Penicillins Allergy Unknown DIFFICULTY Verified 06/18/18 14:55 BREATHING, RASH Sulfa (Sulfonamide Allergy Unknown DIFFICULTY Verified 06/18/18 14:55 Antibiotics) BREATHING, RASH PMH/Surg Hx/FS Hx/Imm Hx GI/ History: Gastroesophageal Reflux Other History Of: Negative For: HIV, Hepatitis B, Hepatitis C, Anticoagulant Therapy - Surgical History Surgical History: Yes Surgery Procedure, Year, and Place: hysterectomy. . 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 - Family History Known Family History: Positive: Cardiac Disease, Hypertension, Diabetes, Respiratory Disease, Other - copd - Social History Occupation: Employed Full-time Lives: With Family Alcohol Use: Rare Substance Use Type: None Smoking Status (MU): Heavy Every Day Tobacco Smoker Type: Cigarettes Amount Used/How Often: 1/2 ppd Length of Time of Smoking/Using Tobacco: 35 yrs Have You Smoked in the Last Year: Yes Household Exposure Type: Cigarettes - Immunization History Most Recent Influenza Vaccination: none Review of Systems Constitutional: Negative Skin: Negative Eyes: Negative ENT: Ear Ache, Nasal Discharge, Sinus Congestion, Sinus Pain/Tenderness Respiratory: Negative Cardiovascular: Negative Gastrointestinal: Negative Neurovascular: Negative Neurological: Negative Psychological: Negative All Other Systems Reviewed And Are Negative: Yes Physical Exam - Summary Physical Exam Summary: GENERAL: NAD. WDWN. No pain distress. SKIN: No rashes, sores, lesions, or open wounds. HEENT: Head: AT/NC Eyes: EOM intact. Conjunctiva clear without inflammation or discharge. Ears: Hearing grossly normal. TMs intact, no bulging, erythema, or edema. Nose: Nasal mucosa mildly swollen and erythematous without discharge. TTP maxillary and frontal sinus. Throat: Posterior oropharynx without exudates, erythema, or tonsillar enlargement. Uvula midline. NECK: Supple. Nontender. No lymphadenopathy. CHEST: CTAB. No r/r/w. No accessory muscle use. Breathing comfortably and in no distress. CV: RRR. Without m/r/g. Pulses intact. Brisk cap refill. NEURO: Alert. CN II-XII grossly intact. PSYCH: Age appropriate behavior. Triage Information Reviewed: Yes Vital Signs: Vital Signs: Temp Pulse Resp BP Pulse Ox 98.7 F 92 16 136/40 96 06/18/18 14:52 06/18/18 14:52 06/18/18 14:52 06/18/18 14:52 06/18/18 14:52 Ear Complaint Course/Dx - Course Course Of Treatment: Sinusitis - Differential Dx/Diagnosis Provider Diagnoses: Sinusitis Discharge - Sign-Out/Discharge Documenting (check all that apply): Patient Departure - Discharge Plan Condition: Stable Disposition: HOME Prescriptions: Azithromycin TAB* [Zithromax TAB (Z-PRECIOUS) 250 mg #6 tabs] 2 tab PO .TODAY, THEN 1 DAILY #1 precious Fluticasone NASAL SPRAY 50MCG* [Flonase NASAL SPRAY 50MCG*] 2 spray BOTH NARES DAILY #1 btl Patient Education Materials: Sinusitis (ED) Referrals: Bong RIVERA,Florentin Pope [Primary Care Provider] - Additional Instructions: If you develop a fever, shortness of breath, chest pain, new or worsening symptoms - please call your PCP or go to the ED. Per institutional requirements, I have reviewed the chart, however, I was not consulted specifically or made aware of this patient by the above midlevel provider. I did not personally evaluate, interact with , or disposition this patient. - Billing Disposition and Condition Condition: STABLE Disposition: Home
[2018-06-18 14:55] VITALS: BP 136/40
== END 2018-06-18 15:14 | disposition home or self-care (01) ==
LOC: UCCORT 13:59
DX: J32.9 Chronic sinusitis, unspecified (principal); Z88.0 Allergy status to penicillin; Z88.2 Allergy status to sulfonamides; Z88.8 Allergy status to other drugs, medicaments and biological substances; F17.210 Nicotine dependence, cigarettes, uncomplicated
CPT/HCPCS: 99212; G0463

== ENCOUNTER 2018-07-11 09:01 | Emergency (ER) | payer BC ==
[2018-07-11 09:15] VITALS: BP 122/68
--- NOTE | 2018-07-11 09:28 | UC ---
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 uses anti- histamien eye gtts as directed w/o releif. she plans to see an college advisor bc sx are so signfiicant this yr. positive pain and pressure behind her eyes, forehead and cheeks. Increased pain when she bends forward. Does not get sinus infections frequently but has gotten significant infections because significant allergies. Penicillin and sulfa allergy. States she takes Z-Khris with good relief when she gets these. Denies problems with her liver or arrhythmias. - History of Current Complaint Chief Complaint: UCRespiratory Stated Complaint: SINUS Time Seen by Provider: 07/11/18 09:12 Hx Last Menstrual Period: 1998 Pain Intensity: 5 - Allergies/Home Medications Allergies/Adverse Reactions: Allergies Allergy/AdvReac Type Severity Reaction Status Date / Time diphenhydramine Allergy Severe DIFFIULTY Verified 07/11/18 09:16 [From Benadryl] BREATHING, RASH Penicillins Allergy Unknown DIFFICULTY Verified 07/11/18 09:16 BREATHING, RASH Sulfa (Sulfonamide Allergy Unknown DIFFICULTY Verified 07/11/18 09:16 Antibiotics) BREATHING, RASH Home Medications: Home Medications Dextran 70/Hypromellose/Pf [Artificial Tears Drops] 1 drop BOTH EYES DAILY 07/11 [History Confirmed 07/11/18] Ketotifen Fumarate [Zaditor] 1 drop BOTH EYES DAILY 07/11/18 [History Confirmed 07/11/18] PMH/Surg Hx/FS Hx/Imm Hx Previously Healthy: Yes Other History Of: Negative For: HIV, Hepatitis B, Hepatitis C, Anticoagulant Therapy - Surgical History Surgical History: Yes Surgery Procedure, Year, and Place: hysterectomy 1998. . 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 - Family History Known Family History: Positive: Cardiac Disease, Hypertension, Diabetes, Respiratory Disease, Other - copd - Social History Alcohol Use: Rare Substance Use Type: None Smoking Status (MU): Light Every Day Tobacco Smoker Type: Cigarettes Amount Used/How Often: 1/2 ppd Length of Time of Smoking/Using Tobacco: 35 yrs Have You Smoked in the Last Year: Yes Household Exposure Type: Cigarettes - Immunization History Most Recent Influenza Vaccination: none Review of Systems Constitutional: Negative Skin: Negative Eyes: Eye Redness ENT: Ear Ache, Sinus Congestion, Sinus Pain/Tenderness Respiratory: Negative Cardiovascular: Negative Gastrointestinal: Negative Genitourinary: Negative Motor: Negative Neurovascular: Negative Musculoskeletal: Negative Neurological: Negative Psychological: Negative Is Patient Immunocompromised?: No All Other Systems Reviewed And Are Negative: Yes Physical Exam Triage Information Reviewed: Yes Appearance: Well-Appearing, No Pain Distress, Well-Nourished Vital Signs: Initial Vital Signs Temp 98.5 F 07/11/18 09:08 Pulse 83 07/11/18 09:08 Resp 18 07/11/18 09:08 BP 122/68 07/11/18 09:08 Pulse Ox 99 07/11/18 09:08 Vital Signs Reviewed: Yes Eyes: Positive: Conjunctiva Inflamed. Negative: Discharge ENT: Positive: Pharynx normal - Positive postnasal drip. No exudate, TMs normal - Scarred bilaterally. No retraction, or erythema, Sinus tenderness - Bilateral maxillary and frontal., Uvula midline. Negative: Hoarse voice Neck exam: Normal Neck: Positive: Supple, Nontender, No Lymphadenopathy Respiratory Exam: Normal Respiratory: Positive: Lungs clear, Normal breath sounds, No respiratory distress, No accessory muscle use Cardiovascular Exam: Normal Cardiovascular: Positive: RRR, No Murmur Abdomen Description: Positive: Nontender, Soft Musculoskeletal Exam: Normal Neurological Exam: Normal Psychological Exam: Normal Skin Exam: Normal Throat Pain/Nasal Course/Dx - Course Assessment/Plan: Sinusitis, allergic conjunctivitis - Differential Dx/Diagnosis Differential Diagnosis/HQI/PQRI: Sinusitis, URI Provider Diagnoses: Sinusitis Discharge - Sign-Out/Discharge Documenting (check all that apply): Patient Departure - Discharge Plan Condition: Stable Disposition: HOME Prescriptions: Azithromyxin KHRIS (NF) [Z-Khris (Zithromax) 250 mg tabs #6] 250 mg PO .ZPAK INSTRUCTIONS #6 tab Patient Education Materials: Sinusitis (ED) Referrals: Bong RIVERA,Florentin Pope [Primary Care Provider] - 6 Days Additional Instructions: -Make sure to take a probiotic daily while on antibiotics to help prevent a potential complication of antibiotic use called c diff. Some well known brands that can be found OTC are [employer]or, [employer] and [employer]. Make sure to complete the entire prescription unless advised otherwise by your health care provider. -Continue the saline rinses, flonase and anti-histamine medicines. - Billing Disposition and Condition Condition: STABLE Disposition: Home
== END 2018-07-11 09:50 | disposition home or self-care (01) ==
LOC: UCCORT 09:01
DX: J32.9 Chronic sinusitis, unspecified (principal); Z88.0 Allergy status to penicillin; Z88.1 Allergy status to other antibiotic agents; Z88.8 Allergy status to other drugs, medicaments and biological substances; F17.210 Nicotine dependence, cigarettes, uncomplicated
CPT/HCPCS: 99212; G0463

== ENCOUNTER 2018-11-28 07:29 | Emergency (ER) | payer BC ==
[2018-11-28 07:41] VITALS: BP 135/77
--- NOTE | 2018-11-28 08:14 | UC ---
Respiratory Complaint HPI - HPI Summary HPI Summary: Cough and congestion for about 9 days. No fever. cough is mainly dry. - History of Current Complaint Chief Complaint: UCRespiratory Stated Complaint: COUGH, CONGESTION Time Seen by Provider: 11/28/18 08:00 Hx Obtained From: Patient Hx Last Menstrual Period: 1998 Onset/Duration: Gradual Onset, Lasting Days Timing: Constant Severity Initially: Moderate Severity Currently: Moderate Pain Intensity: 0 Character: Cough: Nonproductive Aggravating Factors: Deep Breaths, Recumbent Position Alleviating Factors: Nothing Associated Signs And Symptoms: Positive: Chills, URI, Nasal Congestion. Negative: Dyspnea, Fever, Hemoptysis, Dizziness, Calf Pain, Calf Swelling - Risk Factors Pulmonary Embolism Risk Factors: Smoking - Allergies/Home Medications Allergies/Adverse Reactions: Allergies Allergy/AdvReac Type Severity Reaction Status Date / Time diphenhydramine Allergy Severe DIFFIULTY Verified 11/28/18 07:41 [From Benadryl] BREATHING, RASH Penicillins Allergy Unknown DIFFICULTY Verified 11/28/18 07:41 BREATHING, RASH Sulfa (Sulfonamide Allergy Unknown DIFFICULTY Verified 11/28/18 07:41 Antibiotics) BREATHING, RASH Home Medications: Home Medications LevoCETirizine TAB (NF) [Xyzal TAB (NF)] 5 mg PO DAILY 11/28/18 [History Confirmed 11/28/18] PMH/Surg Hx/FS Hx/Imm Hx Previously Healthy: No - smoker. Other History Of: Negative For: HIV, Hepatitis B, Hepatitis C, Anticoagulant Therapy - Surgical History Surgical History: Yes Surgery Procedure, Year, and Place: hysterectomy 1998. . 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 Negative: Sinus Pain/Tenderness Respiratory: Positive: Cough Gastrointestinal: Negative: Vomiting, Diarrhea Physical Exam Triage Information Reviewed: Yes Appearance: Well-Appearing, No Pain Distress, Well-Nourished Vital Signs: Initial Vital Signs Temp 97.7 F 11/28/18 07:39 Pulse 90 11/28/18 07:39 Resp 17 11/28/18 07:39 BP 135/77 11/28/18 07:39 Pulse Ox 96 11/28/18 07:39 Vital Signs Reviewed: Yes Eye Exam: Normal Eyes: Positive: Conjunctiva Clear. Negative: Conjunctiva Inflamed ENT: Positive: Normal ENT inspection, Pharynx normal, Nasal congestion, TM bulging, TM dull. Negative: Pharyngeal erythema, TM red, Tonsillar swelling, Tonsillar exudate, Trismus, Muffled voice, Sinus tenderness, Uvula midline Neck: Positive: Supple, Nontender, No Lymphadenopathy Respiratory: Positive: Lungs clear, Normal breath sounds, No respiratory distress, No accessory muscle use, Respiratory distress, Decreased breath sounds. Negative: Accessory muscle use, Crackles, Rhonchi, Stridor, Wheezing Cardiovascular: Positive: RRR, No Murmur, Pulses Normal, Brisk Capillary Refill. Negative: Tachycardia, Bradycardia Abdomen Description: Positive: No Organomegaly, Soft. Negative: Distended, Guarding Musculoskeletal: Positive: Strength Intact, ROM Intact, No Edema Neurological: Positive: Alert, Muscle Tone Normal. Negative: Fatigued Psychological: Positive: Normal Response To Family, Age Appropriate Behavior Skin: Positive: Rashes UC Diagnostic Evaluation - Laboratory O2 Sat by Pulse Oximetry: 96 Respiratory Course/Dx - Differential Dx/Diagnosis Differential Diagnosis/HQI/PQRI: Foreign Body, Aspiration, Asthma, Bronchitis, CHF, Pulmonary Edema, Exacerbation Of COPD, Influenza, Lower Resp Infection, Pneumothorax, Pulmonary Embolism, Sinusitis Provider Diagnosis: Acute bronchitis Discharge - Sign-Out/Discharge Documenting (check all that apply): Patient Departure All imaging exams completed and their final reports reviewed: No Studies - Discharge Plan Condition: Good Disposition: HOME Prescriptions: Albuterol HFA INHALER* [Ventolin HFA Inhaler*] 1 - 2 puff INH Q4H PRN #1 mdi PRN Reason: Cough Azithromyxin PRECIOUS (NF) [Z-Precious (Zithromax) 250 mg tabs #6] 2 tab PO .TODAY, THEN 1 DAILY #6 tab Benzonatate CAP* [Tessalon 100 MG CAP*] 100 mg PO TID PRN #21 cap PRN Reason: Cough Inhaler, Assist Devices [Aerochamber Mini] 1 each MC Q4HR #1 spacer predniSONE [Prednisone 20 MG TAB] 20 mg PO BID #10 tablet Referrals: Bong RIVERA,Florentin Pope [Primary Care Provider] - - Billing Disposition and Condition Condition: GOOD Disposition: Home
== END 2018-11-28 08:12 | disposition home or self-care (01) ==
LOC: UCCORT 07:29
DX: J20.9 Acute bronchitis, unspecified (principal); Z88.8 Allergy status to other drugs, medicaments and biological substances; Z88.0 Allergy status to penicillin; Z88.2 Allergy status to sulfonamides; F17.210 Nicotine dependence, cigarettes, uncomplicated
CPT/HCPCS: 99212; G0463

== ENCOUNTER 2019-05-08 07:44 | Emergency (ER) | payer BC ==
[2019-05-08 07:55] VITALS: BP 120/48
[2019-05-08] MEDS ORDERED: Albuterol/Ipratropium NEB.SOL* Albuterol 2.5 MG/Ipratropium 0.5 MG 3 ML INH ONE (08:02)
--- NOTE | 2019-05-08 08:27 | UC ---
Respiratory Complaint HPI - HPI Summary HPI Summary: 53-year-old female who has been ill for approximately 10 days with head congestion and she states that has improved however it has gone to her chest and she has some wheezing. She is a smoker however she is decreasing to one half pack per day. - History of Current Complaint Chief Complaint: UCGeneralIllness Stated Complaint: SINUS COUGH CONGESTION Time Seen by Provider: 05/08/19 07:57 Hx Obtained From: Patient Hx Last Menstrual Period: 1998 ?: No Onset/Duration: Gradual Onset Severity Initially: Mild Severity Currently: Mild Pain Intensity: 0 Character: Cough: Productive Aggravating Factors: Nothing Alleviating Factors: Nothing Associated Signs And Symptoms: Positive: Wheezing, URI, Nasal Congestion. Negative: Sinus Discomfort - Allergies/Home Medications Allergies/Adverse Reactions: Allergies Allergy/AdvReac Type Severity Reaction Status Date / Time diphenhydramine Allergy Severe DIFFIULTY Verified 11/28/18 07:41 [From Benadryl] BREATHING, RASH Penicillins Allergy Unknown DIFFICULTY Verified 11/28/18 07:41 BREATHING, RASH Sulfa (Sulfonamide Allergy Unknown DIFFICULTY Verified 11/28/18 07:41 Antibiotics) BREATHING, RASH Home Medications: Home Medications Loratadine [Claritin] 10 mg PO DAILY 05/08/19 [History Confirmed 05/08/19] Omeprazole 20 mg PO DAILY 05/08/19 [History Confirmed 05/08/19] buPROPion HCl [Wellbutrin Sr] 100 mg PO BID 05/08/19 [History Confirmed 05/08/19 ] PMH/Surg Hx/FS Hx/Imm Hx Previously Healthy: Yes Other History Of: Negative For: HIV, Hepatitis B, Hepatitis C, Anticoagulant Therapy - Surgical History Surgical History: Yes Surgery Procedure, Year, and Place: hysterectomy 1998. . 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 - Family History Known Family History: Positive: Cardiac Disease, Hypertension, Diabetes, Respiratory Disease, Other - copd - Social History Alcohol Use: Rare Substance Use Type: None Smoking Status (MU): Light Every Day Tobacco Smoker Type: Cigarettes Amount Used/How Often: 1/2 ppd Length of Time of Smoking/Using Tobacco: 35 yrs Have You Smoked in the Last Year: Yes Household Exposure Type: Cigarettes - Immunization History Most Recent Influenza Vaccination: none Review of Systems All Other Systems Reviewed And Are Negative: Yes ENT: Positive: Nasal Discharge Respiratory: Positive: Cough Is Patient Immunocompromised?: No Physical Exam Triage Information Reviewed: Yes Appearance: Well-Appearing, No Pain Distress, Well-Nourished Vital Signs: Initial Vital Signs Temp 98.0 F 05/08/19 07:49 Pulse 70 05/08/19 07:49 Resp 16 05/08/19 07:49 BP 120/48 05/08/19 07:49 Pulse Ox 96 05/08/19 07:49 Vital Signs Reviewed: Yes Eyes: Positive: Conjunctiva Clear ENT: Positive: Pharynx normal, TMs normal, Uvula midline Neck: Positive: Supple, Nontender, No Lymphadenopathy Respiratory: Positive: No respiratory distress, No accessory muscle use, Rhonchi - Scattered rhonchi and wheezing throughout, no distress., Wheezing Cardiovascular: Positive: RRR, No Murmur, Pulses Normal, Brisk Capillary Refill Musculoskeletal: Positive: Strength Intact, ROM Intact Neurological: Positive: Alert, Muscle Tone Normal Psychological Exam: Normal Skin Exam: Normal Respiratory Course/Dx - Course Course Of Treatment: Chest x-ray:FINDINGS: The heart is within normal limits in size. Mediastinal contours appear within normal limits. The lungs are clear. No pleural effusion is seen. IMPRESSION: NO EVIDENCE FOR ACTIVE CARDIOPULMONARY DISEASE. Duoneb Treatment: Increased air movement, decreased wheezing. - Differential Dx/Diagnosis Provider Diagnosis: Bronchitis Discharge - Sign-Out/Discharge Documenting (check all that apply): Patient Departure All imaging exams completed and their final reports reviewed: Yes - Discharge Plan Condition: Fair Disposition: HOME Prescriptions: Albuterol HFA INHALER* [Ventolin HFA Inhaler*] 2 puff INH Q4H PRN 5 Days #1 mdi PRN Reason: Wheezing Azithromyxin PRECIOUS (NF) [Z-Precious (Zithromax) 250 mg tabs #6] 2 tab PO .TODAY, THEN 1 DAILY #6 tab predniSONE [Prednisone 20 MG TAB] 20 mg PO DAILY 9 Days #8 tablet Patient Education Materials: Acute Bronchitis (ED) Referrals: Bong RIVERA,Florentin Pope [Primary Care Provider] - Additional Instructions: Increase fluids, stop smoking, follow-up with your primary care provider as scheduled for a recheck. - Billing Disposition and Condition Condition: FAIR Disposition: Home
== END 2019-05-08 08:51 | disposition home or self-care (01) ==
LOC: UCCORT 07:44
DX: J40 Bronchitis, not specified as acute or chronic (principal); Z88.0 Allergy status to penicillin; Z88.2 Allergy status to sulfonamides; Z88.8 Allergy status to other drugs, medicaments and biological substances; F17.210 Nicotine dependence, cigarettes, uncomplicated
CPT/HCPCS: 71046; 99212; A9270-GY; G0463

== ENCOUNTER 2019-10-17 14:52 | Emergency (ER) | payer BC ==
[2019-10-17 17:04] VITALS: BP 125/67
--- NOTE | 2019-10-17 17:16 | UC ---
FLU HPI - HPI Summary HPI Summary: C/O 2 day history of cough, headache, body aches. 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 Did not get the flu shot. - History of Current Complaint Chief Complaint: UCGeneralIllness Stated Complaint: COUGH,CONGESTION Time Seen by Provider: 10/17/19 17:07 Hx Obtained From: Patient Hx Last Menstrual Period: 1998 ?: No Onset/Duration: Sudden Onset, Lasting Days - 2, Still Present Severity Currently: Moderate Severity Initially: Moderate Pain Intensity: 0 Associated Signs & Symptoms: Positive: Myalgia, Cough, Sore Throat, Nasal Congestion Related Hx: Possible Flu/Infectious Exposure, Smoking - Risk Factors Influenza Risk Factors: Negative - Allergy/Home Medications Allergies/Adverse Reactions: Allergies Allergy/AdvReac Type Severity Reaction Status Date / Time diphenhydramine Allergy Severe DIFFIULTY Verified 10/17/19 17:04 [From Benadryl] BREATHING, RASH Penicillins Allergy Unknown DIFFICULTY Verified 10/17/19 17:04 BREATHING, RASH Sulfa (Sulfonamide Allergy Unknown DIFFICULTY Verified 10/17/19 17:04 Antibiotics) BREATHING, RASH PMH/Surg Hx/FS Hx/Imm Hx Endocrine History: Diabetes Respiratory History: Pneumonia Other History Of: Negative For: HIV, Hepatitis B, Hepatitis C, Anticoagulant Therapy - Surgical History Surgical History: Yes Surgery Procedure, Year, and Place: hysterectomy 1998. . 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 gallbladder - Family History Known Family History: Positive: Cardiac Disease, Hypertension, Diabetes, Respiratory Disease, Other - copd - Social History Occupation: Employed Full-time Lives: Alone Alcohol Use: Rare Substance Use Type: None Smoking Status (MU): Light Every Day Tobacco Smoker Type: Cigarettes Amount Used/How Often: 1/2 ppd Length of Time of Smoking/Using Tobacco: 35 yrs Have You Smoked in the Last Year: Yes Household Exposure Type: Cigarettes Cessation Counseling: Patient Advised to Stop - Immunization History Most Recent Influenza Vaccination: none Review of Systems All Other Systems Reviewed And Are Negative: Yes Constitutional: Positive: Chills, Fatigue ENT: Positive: Sore Throat Respiratory: Positive: Cough Musculoskeletal: Positive: Myalgia Neurological: Positive: Headache Physical Exam Triage Information Reviewed: Yes Appearance: No Pain Distress, Ill-Appearing, Obese Vital Signs: Initial Vital Signs Temp 97.8 F 10/17/19 17:01 Pulse 85 10/17/19 17:01 Resp 15 10/17/19 17:01 BP 125/67 10/17/19 17:01 Pulse Ox 96 10/17/19 17:01 Vital Signs Reviewed: Yes Eyes: Positive: Conjunctiva Inflamed - OU ENT: Positive: Pharynx normal, Nasal congestion, TMs normal Neck exam: Normal Respiratory: Positive: Wheezing - expiratory wheezes with coughing. Cardiovascular Exam: Normal Musculoskeletal Exam: Normal Neurological Exam: Normal Psychological Exam: Normal Skin Exam: Normal Diagnostics - Laboratory Lab Results: Rapid flu is negative Flu Course/Dx - Differential Dx/Diagnosis Differential Diagnosis/HQI/PQRI: Bronchitis, Broncholiolitis, Influenza, Pneumonia, Upper Respiratory Infection Provider Diagnosis: Upper respiratory infection with cough and congestion, Bronchospasm, acute Discharge ED - Sign-Out/Discharge Documenting (check all that apply): Patient Departure All imaging exams completed and their final reports reviewed: No Studies - Discharge Plan Condition: Stable Disposition: HOME Prescriptions: Albuterol HFA INHALER* [Ventolin HFA Inhaler*] 2 puff INH Q4H PRN #1 mdi PRN Reason: Wheezing predniSONE TAB* [Deltasone 20 MG TAB*] 60 mg PO DAILY #18 tab Patient Education Materials: Upper Respiratory Infection (ED), Wheezing (ED) Referrals: Bong RIVERA,Florentin Pope [Primary Care Provider] - Additional Instructions: Smoking Cessation Tricks. 1. Cut down by 1 cigarette per day every 2-3 days. Write the number of smokes for that day on the calendar. 2. Identify triggers to smoking: after meals, on the phone, in the car, with coffee, on breaks at work, etc. 3. Formulate a plan with a behavior to replace the smoking. Fireballs in the car , doodle pad on the phone, flavored creamer for the coffee, go for a walk after a meal or on break at work. 4. For stress smokes do deep breathing relaxation. Breath deep in through the nose hold the breath in for a few seconds then breath out slowly through the mouth. - Billing Disposition and Condition Condition: STABLE Disposition: Home
[2019-10-17 17:33] LABS: Influenza A Molecular NEGATIVE (Negative); Influenza B Molecular NEGATIVE (Negative)
== END 2019-10-17 17:40 | disposition home or self-care (01) ==
LOC: UCCORT 14:52
DX: J06.9 Acute upper respiratory infection, unspecified (principal); J98.01 Acute bronchospasm; R05 Cough; R09.81 Nasal congestion; E11.9 Type 2 diabetes mellitus without complications; F17.210 Nicotine dependence, cigarettes, uncomplicated; Z88.8 Allergy status to other drugs, medicaments and biological substances; Z88.0 Allergy status to penicillin; Z88.2 Allergy status to sulfonamides
CPT/HCPCS: 99212; G0463